=== PATIENT | male | born 1955 | race American Indian/Alaskan Native ===

== ENCOUNTER 2020-08-18 15:42 | Inpatient (IN) | payer MEDICARE, OTHER ==
--- NOTE | 2020-08-18 16:28 | Emergency Department Report ---
ED Syncope HPI - General Chief Complaint: Syncope Stated Complaint: SYNCOPAL EPISODE/HYPOTENSION Time Seen by Provider: 08/18/20 16:14 - History of Present Illness Initial Comments: 65-year-old male, history of nasopharyngeal cancer, sickle cell anemia (SC- type), presents to ED following syncopal episode. Patient states he was at his brother's house giving him a haircut. Patient states he had a hot flash, so he sat down. Patient states he stood back up to continue trimming his brother's mustache and then remembers waking up on the floor. Patient states he has had several of these hot flashes, but has never passed out. Patient does report diaphoresis with it. He denies any associated chest pain, shortness of breath, headache, palpitations, abdominal pain, vomiting or diarrhea. Patient denies any recent fever. Patient states he had a sickle cell crisis 2 weeks ago, but states he is feeling much better at this time. Patient reports his blood pressure runs low at baseline. He states that he usually checks his blood pressure at home every other day and systolic is usually in the 90s. Timing/Prior Episodes: recent history Precipitating Factors: Positive: diaphoresis Context: standing Loss of Consciousness: unsure Current Symptoms: back to normal. denies: chest pain, diaphoresis, nausea - Related Data Allergies/Adverse Reactions: Allergies No Known Allergies Allergy (Unverified 08/18/20 16:04) ED Review of Systems ROS: Stated complaint: SYNCOPAL EPISODE/HYPOTENSION Other details as noted in HPI Comment: All other systems reviewed and negative Constitutional: denies: chills, fever Respiratory: denies: cough, shortness of breath Cardiovascular: denies: chest pain, palpitations Gastrointestinal: denies: abdominal pain, vomiting, diarrhea Neurological: denies: headache ED Past Medical Hx - Past Medical History Hx Sickle Cell Disease: Yes Additional medical history: nasopharyngeal cancer - Social History Smoking Status: Current Every Day Smoker Substance Use Type: None ED Physical Exam - General Limitations: No Limitations General appearance: alert, in no apparent distress - Head Head exam: Present: atraumatic, normocephalic - Eye Eye exam: Present: normal appearance, EOMI - ENT ENT exam: Present: mucous membranes moist - Neck Neck exam: Present: normal inspection - Respiratory Respiratory exam: Present: normal lung sounds bilaterally. Absent: respiratory distress - Cardiovascular Cardiovascular Exam: Present: regular rate, normal rhythm - GI/Abdominal GI/Abdominal exam: Present: soft. Absent: distended, tenderness - Extremities Exam Extremities exam: Present: normal inspection - Neurological Exam Neurological exam: Present: alert, oriented X3, CN II-XII intact. Absent: motor sensory deficit - Psychiatric Psychiatric exam: Present: normal affect, normal mood - Skin Skin exam: Present: warm, dry, intact, normal color ED Course Vital Signs 08/18/20 08/18/20 08/18/20 15:54 15:58 16:12 Temperature 97.9 F Pulse Rate 56 L 88 78 Respiratory 15 12 10 L Rate Blood Pressure 97/57 O2 Sat by Pulse 99 100 Oximetry 08/18/20 08/18/20 08/18/20 16:16 16:30 16:46 Temperature Pulse Rate 77 76 Respiratory 11 L 9 L Rate Blood Pressure 99/69 100/68 96/63 O2 Sat by Pulse 100 100 100 Oximetry 08/18/20 08/18/20 08/18/20 17:00 19:24 20:00 Temperature Pulse Rate 74 82 74 Respiratory 12 16 16 Rate Blood Pressure 107/59 107/59 97/68 O2 Sat by Pulse 99 99 100 Oximetry 08/18/20 08/18/20 08/18/20 21:00 22:00 23:00 Temperature Pulse Rate Respiratory 12 17 17 Rate Blood Pressure 104/73 109/71 107/73 O2 Sat by Pulse 100 100 100 Oximetry ED Medical Decision Making - Lab Data Result diagrams: 08/18/20 16:33 08/18/20 23:20 - EKG Data -: EKG Interpreted by [facility] EKG shows normal: sinus rhythm, axis, intervals, QRS complexes, ST-T waves Rate: normal - EKG Data Interpretation: no acute changes - Radiology Data Radiology results: report reviewed, image reviewed - Differential Diagnosis ACS, arrhythmia, PE, anemia Critical care attestation.: If time is entered above; I have spent that time in minutes in the direct care of this critically ill patient, excluding procedure time. ED Disposition Clinical Impression: Syncope Disposition: OP ADMIT IP TO THIS HOSP Is pt being admited?: Yes Condition: Stable Time of Disposition: 21:16
[2020-08-18 16:50] LABS: Basophils % (Auto) 0.9 % (0.0-1.8); Eosinophils # (Auto) 0.1 K/mm3 (0.0-0.4); Eosinophils % (Auto) 2.3 % (0.0-4.3); Hematocrit 23.4 % (35.5-45.6); Hemoglobin 8.3 gm/dl (11.8-15.2); Lymphocytes # (Auto) 0.8 K/mm3 (1.2-5.4); Lymphocytes % (Auto) 18.9 % (13.4-35.0); Mean Corpuscular HGB Conc 35 % (32-34); Mean Corpuscular Volume 80 fl (84-94); Monocytes # (Auto) 0.2 K/mm3 (0.0-0.8); Platelet Count 137 K/mm3 (140-440); Red Blood Count 2.92 M/mm3 (3.65-5.03)
[2020-08-18 16:55] LABS: Red Cell Distribution Width 20.2 % (13.2-15.2)
--- NOTE | 2020-08-18 16:55 | XRay Report ---
CHEST 1 VIEW INDICATION: syncope. COMPARISON: None FINDINGS: SUPPORT DEVICES: Right-sided Port-A-Cath with tip at the cavoatrial junction. HEART: Within normal limits. LUNGS/PLEURA: No acute air space or interstitial disease. ADDITIONAL FINDINGS: None. IMPRESSION: 1. No acute findings. Signer Name: Justin Mckeon MD Signed: 08/18/2020 4:50 PM Workstation Name: [id number]
[2020-08-18 17:07] LABS: Alanine Aminotransferase 13 units/L (7-56); BUN/Creatinine Ratio 7; Blood Urea Nitrogen 9 mg/dL (9-20); Calcium 8.9 mg/dL (8.4-10.2); Hemolysis Index 3; INR 1.13 (0.87-1.13)
[2020-08-18 17:08] LABS: Partial Thromboplastin Time 41.4 Sec. (24.2-36.6)
[2020-08-18 17:13] LABS: Bilirubin,Direct < 0.2 mg/dL (0-0.2)
--- NOTE | 2020-08-18 17:34 | Cat Scan Report ---
CT head without contrast HISTORY: syncope; hx nasopharyngeal CA. TECHNIQUE: Axial imaging performed from the skull apex through the skull base without the use of con trast. All CT scans at this location are performed using CT dose reduction for ALARA by means of aut omated exposure control. COMPARISON: None FINDINGS: Parenchyma: No acute intracranial hemorrhage or parenchymal abnormality. Ventricles: There is mild diffuse brain atrophy with commensurate ventricular enlargement which is l ikely age appropriate. Soft tissues: Soft tissues including the orbits appear normal. Bones: No acute osseous abnormality. Sinuses: Sinuses and mastoid air cells are clear. IMPRESSION: No acute abnormality. Signer Name: Justin Mckeon MD Signed: 08/18/2020 5:29 PM Workstation Name: [id number]
[2020-08-18] MEDS ORDERED: ONDANSETRON 4 MG/2 ML INJ IV PRN (21:56)
[2020-08-18] MEDS ORDERED: traMADol 50 MG TAB PO PRN (21:56)
[2020-08-18] MEDS ORDERED: ALBUTEROL 2.5 MG/3 ML NEBU IH PRN (21:56)
[2020-08-18] MEDS ORDERED: ACETAMINOPHEN 325 MG TAB PO PRN ×2 (21:56)
--- NOTE | 2020-08-18 22:05 | History and Physical Report ---
History of Present Illness Date of examination: 08/18/20 Date of admission: 08/18/20 21:18 Chief complaint: Syncope History of present illness: 65-year-old male past medical history of nasopharyngeal cancer, sickle cell anemia (SC-type) was brought to the emergency room because of syncopal episode. Patient was at his brother's house giving him a haircut. Patient states he had a hot flash, so he sat down. Patient states he stood back up to continue trimming his brother's mustache and then remembers waking up on the floor. Patient states he has had several of these hot flashes, but has never passed out. Patient does report diaphoresis with it. He denies any associated chest pain, shortness of breath, headache, palpitations, abdominal pain, vomiting or diarrhea. Patient denies any recent fever. Patient states he had a sickle cell crisis 2 weeks ago, but states he is feeling much better at this time. Patient reports his blood pressure runs low at baseline. He states that he usually checks his blood pressure at home every other day and systolic is usually in the 90s. In the emergency room patient is found to have syncopal episode. Initial cardiac enzyme is negative troponin is 0.010 Past History Past Medical History: other (Sickle cell disease. Nasopharyngeal carcinoma) Medications and Allergies Allergies Allergy/AdvReac Type Severity Reaction Status Date / Time No Known Allergies Allergy Unverified 08/18/20 16:04 Active Meds: Active Medications Acetaminophen (Acetaminophen 325 Mg Tab) 650 mg PO Q4H PRN PRN Reason: Pain MILD(1-3)/Fever >100.5/VALLES Acetaminophen (Acetaminophen 325 Mg Tab) 650 mg PO Q6H PRN PRN Reason: Pain, Mild (1-3) Albuterol (Albuterol 2.5 Mg/3 Ml Nebu) 2.5 mg IH Q3HRT PRN PRN Reason: Shortness Of Breath Albuterol/Ipratropium (Ipratropium/Albuterol Sulfate 3 Ml Ampul.Neb) 1 ampul IH Q6HRT ORION Aspirin (Aspirin 81 Mg Tab Chew) 81 mg PO QDAY ORION Atorvastatin Calcium (Atorvastatin 40 Mg Tab) 40 mg PO QHS ORION Famotidine (Famotidine 20 Mg Tab) 20 mg PO BID ORION Sodium Chloride (Nacl 0.9% 1000 Ml) 1,000 mls @ 100 mls/hr IV DIRECT ORION Ondansetron HCl (Ondansetron 4 Mg/2 Ml Inj) 4 mg IV Q8H PRN PRN Reason: Nausea And Vomiting Sodium Chloride (Sodium Chloride 0.9% 10 Ml Flush Syringe) 10 ml IV BID ORION Sodium Chloride (Sodium Chloride 0.9% 10 Ml Flush Syringe) 10 ml IV PRN PRN PRN Reason: LINE FLUSH Sodium Chloride (Sodium Chloride 0.9% 10 Ml Flush Syringe) 10 ml IV PRN PRN PRN Reason: LINE FLUSH Tramadol HCl (Tramadol 50 Mg Tab) 50 mg PO Q6H PRN PRN Reason: Pain, Moderate (4-6) Review of Systems Cardiovascular: syncope, other (Hot flashes) Exam - Constitutional Vitals: Temp Pulse Resp BP Pulse Ox 97.9 F 74 12 104/73 100 08/18/20 15:58 08/18/20 20:00 08/18/20 21:00 08/18/20 21:00 08/18/20 21:00 General appearance: Present: no acute distress, well-nourished - EENT Eyes: Present: PERRL ENT: hearing intact, clear oral mucosa - Neck Neck: Present: supple, normal ROM - Respiratory Respiratory effort: normal Respiratory: bilateral: CTA - Cardiovascular Heart Sounds: Present: S1 & S2. Absent: rub, click - Extremities Extremities: pulses symmetrical, No edema Peripheral Pulses: within normal limits - Abdominal General gastrointestinal: Present: soft, non-tender, non-distended, normal bowel sounds Male genitourinary: Present: normal - Integumentary Integumentary: Present: clear, warm, dry - Musculoskeletal Musculoskeletal: gait normal, strength equal bilaterally - Psychiatric Psychiatric: appropriate mood/affect, intact judgment & insight - Neurologic Neurologic: CNII-XII intact, moves all extremities HEART Score - HEART Score Troponin: Troponin T < 0.010 ng/mL (0.00-0.029) 08/18/20 19:28 Results - Labs CBC & Chem 7: 08/18/20 16:33 08/18/20 16:33 Labs: Laboratory Last Values WBC 4.4 K/mm3 (4.5-11.0) L 08/18/20 16:33 RBC 2.92 M/mm3 (3.65-5.03) L 08/18/20 16:33 Hgb 8.3 gm/dl (11.8-15.2) L 08/18/20 16:33 Hct 23.4 % (35.5-45.6) L 08/18/20 16:33 MCV 80 fl (84-94) L 08/18/20 16:33 MCH 28 pg (28-32) 08/18/20 16:33 MCHC 35 % (32-34) H 08/18/20 16:33 RDW 20.2 % (13.2-15.2) H 08/18/20 16:33 Plt Count 137 K/mm3 (140-440) L 08/18/20 16:33 Lymph % (Auto) 18.9 % (13.4-35.0) 08/18/20 16:33 [place] % (Auto) 5.0 % (0.0-7.3) 08/18/20 16:33 Eos % (Auto) 2.3 % (0.0-4.3) 08/18/20 16:33 Baso % (Auto) 0.9 % (0.0-1.8) 08/18/20 16:33 Lymph # (Auto) 0.8 K/mm3 (1.2-5.4) L 08/18/20 16:33 [place] # (Auto) 0.2 K/mm3 (0.0-0.8) 08/18/20 16:33 Eos # (Auto) 0.1 K/mm3 (0.0-0.4) 08/18/20 16:33 Baso # (Auto) 0.0 K/mm3 (0.0-0.1) 08/18/20 16:33 Seg Neutrophils % 72.9 % (40.0-70.0) H 08/18/20 16:33 Seg Neutrophils # 3.2 K/mm3 (1.8-7.7) 08/18/20 16:33 PT 14.4 Sec. (12.2-14.9) 08/18/20 16:33 INR 1.13 (0.87-1.13) 08/18/20 16:33 APTT 41.4 Sec. (24.2-36.6) H 08/18/20 16:33 D-Dimer < 135.00 ng/mlDDU (0-234) 08/18/20 16:33 Sodium 137 mmol/L (137-145) 08/18/20 16:33 Potassium 4.0 mmol/L (3.6-5.0) 08/18/20 16:33 Chloride 104.8 mmol/L (98-107) 08/18/20 16:33 Carbon Dioxide 22 mmol/L (22-30) 08/18/20 16:33 Anion Gap 14 mmol/L 08/18/20 16:33 BUN 9 mg/dL (9-20) 08/18/20 16:33 Creatinine 1.3 mg/dL (0.8-1.3) 08/18/20 16:33 Estimated GFR 56 ml/min 08/18/20 16:33 BUN/Creatinine Ratio 7 % 08/18/20 16:33 Glucose 85 mg/dL (75-100) 08/18/20 16:33 Calcium 8.9 mg/dL (8.4-10.2) 08/18/20 16:33 Total Bilirubin 0.70 mg/dL (0.1-1.2) 08/18/20 16:33 Direct Bilirubin < 0.2 mg/dL (0-0.2) 08/18/20 16:33 Indirect Bilirubin 0.5 mg/dL 08/18/20 16:33 AST 9 units/L (5-40) 08/18/20 16:33 ALT 13 units/L (7-56) 08/18/20 16:33 Alkaline Phosphatase 75 units/L (35-129) 08/18/20 16:33 Troponin T < 0.010 ng/mL (0.00-0.029) 08/18/20 19:28 Total Protein 6.6 g/dL (6.3-8.2) 08/18/20 16:33 Albumin 4.0 g/dL (3.9-5) 08/18/20 16:33 Albumin/Globulin Ratio 1.5 % 08/18/20 16:33 - Imaging and Cardiology Chest x-ray: report reviewed CT Scan - head: report reviewed Assessment and Plan VTE prophylaxis?: Chemical Plan of care discussed with patient/family: Yes - Patient Problems (1) Syncope Current Visit: Yes Status: Acute Plan to address problem: Admit the patient to the medical telemetry. Put the patient normal saline at the rate of 100 cc/h. Aspirin 81 mg p.o. daily. Lipitor 40 mg p.o. daily. Due to the serial cardiac enzyme. We also do echocardiogram. Consult cardiology if needed (2) Sickle cell disease Current Visit: Yes Status: Acute Plan to address problem: Stable. We will continue the home medication. CBC in the morning (3) Nasopharyngeal carcinoma Current Visit: Yes Status: Acute Plan to address problem: Patient will follow up with oncology as outpatient. We will continue the home medication (4) DVT prophylaxis Current Visit: Yes Status: Acute Plan to address problem: Heparin 5000 units subcu every 8 hours for DVT prophylaxis. Pepcid 20 mg p.o. twice daily for GI prophylaxis. Patient is a full code
[2020-08-19] MEDS: SODIUM CHLORIDE 0.9% 1000 ML 1,000 ML IV SCH ×2 (00:17→10:01)
[2020-08-19] MEDS: FAMOTIDINE 20 MG TAB PO SCH ×3 (00:17→22:04)
[2020-08-19 00:43] LABS: BUN/Creatinine Ratio 7; Blood Urea Nitrogen 9 mg/dL (9-20); Calcium 9.8 mg/dL (8.4-10.2); Hemolysis Index 27
[2020-08-19 00:57] LABS: Basophils % (Auto) 0.5 % (0.0-1.8); Eosinophils # (Auto) 0.1 K/mm3 (0.0-0.4); Eosinophils % (Auto) 2.6 % (0.0-4.3); Hematocrit 24.5 % (35.5-45.6); Hemoglobin 8.8 gm/dl (11.8-15.2); Lymphocytes % (Auto) 25.1 % (13.4-35.0); Mean Corpuscular HGB Conc 36 % (32-34); Mean Corpuscular Volume 80 fl (84-94); Monocytes # (Auto) 0.2 K/mm3 (0.0-0.8); Monocytes % (Auto) 5.1 % (0.0-7.3); Platelet Count 143 K/mm3 (140-440); Red Blood Count 3.06 M/mm3 (3.65-5.03)
[2020-08-19 01:03] LABS: Red Cell Distribution Width 20.2 % (13.2-15.2)
[2020-08-19] MEDS ORDERED: IPRATROPIUM/ALBUTEROL SULFATE 3 ML AMPUL.NEB IH SCH (02:00)
[2020-08-19 05:38] LABS: Basophils % (Auto) 0.6 % (0.0-1.8); Eosinophils # (Auto) 0.1 K/mm3 (0.0-0.4); Eosinophils % (Auto) 3.7 % (0.0-4.3); Hematocrit 20.8 % (35.5-45.6); Hemoglobin 7.6 gm/dl (11.8-15.2); Lymphocytes # (Auto) 0.8 K/mm3 (1.2-5.4); Mean Corpuscular HGB Conc 37 % (32-34); Mean Corpuscular Volume 79 fl (84-94); Monocytes # (Auto) 0.2 K/mm3 (0.0-0.8); Monocytes % (Auto) 5.5 % (0.0-7.3); Platelet Count 117 K/mm3 (140-440); Red Blood Count 2.63 M/mm3 (3.65-5.03)
[2020-08-19 05:39] LABS: Red Cell Distribution Width 20.1 % (13.2-15.2)
[2020-08-19 05:51] LABS: BUN/Creatinine Ratio 7; Blood Urea Nitrogen 10 mg/dL (9-20); Calcium 8.6 mg/dL (8.4-10.2); Hemolysis Index 3
--- NOTE | 2020-08-19 08:42 | Progress Note ---
Assessment and Plan Assessment and plan: Syncope/disequilibrium/autonomic dysfunction. Etiology likely secondary to orthostatic hypotension. On admission, patient noted to be hypotensive. We will check orthostatic vital signs. Continue IV fluid hydration. Continue telemetry monitoring. EKG with no acute changes. Consider cardiology consult if needed. Follow-up echocardiogram and carotid ultrasound. Sickle cell disease. No acute vaso-occlusive crisis at this time. Continue home medication Nasopharyngeal carcinoma. Follow-up with oncology as an outpatient. DVT prophylaxis. History Interval history: No new issues Hospitalist Physical - Constitutional Vitals: Temp Pulse Resp BP Pulse Ox 98.3 F 72 18 96/63 97 08/19/20 03:15 08/19/20 03:15 08/19/20 03:15 08/19/20 03:15 08/19/20 03:15 General appearance: Present: no acute distress, well-nourished - EENT Eyes: Present: PERRL, EOM intact ENT: hearing intact, clear oral mucosa, dentition normal - Neck Neck: Present: supple, normal ROM - Respiratory Respiratory effort: normal Respiratory: bilateral: CTA - Cardiovascular Rhythm: regular Heart Sounds: Present: S1 & S2. Absent: gallop, rub - Extremities Extremities: no ischemia, No edema, Full ROM - Abdominal General gastrointestinal: soft, non-tender, non-distended, normal bowel sounds - Integumentary Integumentary: Present: clear, warm, dry - Neurologic Neurologic: CNII-XII intact, moves all extremities HEART Score - HEART Score Troponin: Troponin T < 0.010 ng/mL (0.00-0.029) 08/19/20 05:02 Results - Labs CBC & Chem 7: 08/19/20 05:02 08/19/20 05:02 Labs: Laboratory Last Values WBC 3.0 K/mm3 (4.5-11.0) L 08/19/20 05:02 RBC 2.63 M/mm3 (3.65-5.03) L 08/19/20 05:02 Hgb 7.6 gm/dl (11.8-15.2) L 08/19/20 05:02 Hct 20.8 % (35.5-45.6) L 08/19/20 05:02 MCV 79 fl (84-94) L 08/19/20 05:02 MCH 29 pg (28-32) 08/19/20 05:02 MCHC 37 % (32-34) H 08/19/20 05:02 RDW 20.1 % (13.2-15.2) H 08/19/20 05:02 Plt Count 117 K/mm3 (140-440) L 08/19/20 05:02 Lymph % (Auto) 28.0 % (13.4-35.0) 08/19/20 05:02 [place] % (Auto) 5.5 % (0.0-7.3) 08/19/20 05:02 Eos % (Auto) 3.7 % (0.0-4.3) 08/19/20 05:02 Baso % (Auto) 0.6 % (0.0-1.8) 08/19/20 05:02 Lymph # (Auto) 0.8 K/mm3 (1.2-5.4) L 08/19/20 05:02 [place] # (Auto) 0.2 K/mm3 (0.0-0.8) 08/19/20 05:02 Eos # (Auto) 0.1 K/mm3 (0.0-0.4) 08/19/20 05:02 Baso # (Auto) 0.0 K/mm3 (0.0-0.1) 08/19/20 05:02 Seg Neutrophils % 62.2 % (40.0-70.0) 08/19/20 05:02 Seg Neutrophils # 1.8 K/mm3 (1.8-7.7) 08/19/20 05:02 PT 14.4 Sec. (12.2-14.9) 08/18/20 16:33 INR 1.13 (0.87-1.13) 08/18/20 16:33 APTT 41.4 Sec. (24.2-36.6) H 08/18/20 16:33 D-Dimer < 135.00 ng/mlDDU (0-234) 08/18/20 16:33 Sodium 139 mmol/L (137-145) 08/19/20 05:02 Potassium 4.3 mmol/L (3.6-5.0) 08/19/20 05:02 Chloride 107.1 mmol/L (98-107) H 08/19/20 05:02 Carbon Dioxide 23 mmol/L (22-30) 08/19/20 05:02 Anion Gap 13 mmol/L 08/19/20 05:02 BUN 10 mg/dL (9-20) 08/19/20 05:02 Creatinine 1.4 mg/dL (0.8-1.3) H 08/19/20 05:02 Estimated GFR > 60 ml/min 08/19/20 05:02 BUN/Creatinine Ratio 7 % 08/19/20 05:02 Glucose 89 mg/dL (75-100) 08/19/20 05:02 Calcium 8.6 mg/dL (8.4-10.2) 08/19/20 05:02 Total Bilirubin 0.70 mg/dL (0.1-1.2) 08/18/20 16:33 Direct Bilirubin < 0.2 mg/dL (0-0.2) 08/18/20 16:33 Indirect Bilirubin 0.5 mg/dL 08/18/20 16:33 AST 9 units/L (5-40) 08/18/20 16:33 ALT 13 units/L (7-56) 08/18/20 16:33 Alkaline Phosphatase 75 units/L (35-129) 08/18/20 16:33 Troponin T < 0.010 ng/mL (0.00-0.029) 08/19/20 05:02 Total Protein 6.6 g/dL (6.3-8.2) 08/18/20 16:33 Albumin 4.0 g/dL (3.9-5) 08/18/20 16:33 Albumin/Globulin Ratio 1.5 % 08/18/20 16:33 [place]/IV: Voiding Method Toilet Active Medications - Current Medications Current Medications: Generic Name Dose Route Start Last Admin Trade Name Freq PRN Reason Stop Dose Admin Acetaminophen 650 mg 08/18/20 21:56 Acetaminophen 325 Mg Tab PO Q4H PRN Pain MILD(1-3)/Fever >100.5/VALLES Albuterol 2.5 mg 08/18/20 21:56 Albuterol 2.5 Mg/3 Ml Nebu IH Q3HRT PRN Shortness Of Breath Aspirin 81 mg 08/19/20 10:00 Aspirin 81 Mg Tab Chew PO QDAY ORION Atorvastatin Calcium 40 mg 08/18/20 22:00 08/19/20 00:17 Atorvastatin 40 Mg Tab PO 40 mg QHS ORION Administration Famotidine 20 mg 08/18/20 22:00 08/19/20 00:17 Famotidine 20 Mg Tab PO 20 mg BID ORION Administration Sodium Chloride 1,000 mls @ 100 mls/hr 08/18/20 22:00 08/19/20 00:17 Nacl 0.9% 1000 Ml IV 100 mls/hr DIRECT ORION Administration Ondansetron HCl 4 mg 08/18/20 21:56 Ondansetron 4 Mg/2 Ml Inj IV Q8H PRN Nausea And Vomiting Sodium Chloride 10 ml 08/18/20 22:00 08/19/20 00:17 Sodium Chloride 0.9% 10 Ml Flush Syringe IV 10 ml BID ORION Administration Sodium Chloride 10 ml 08/18/20 21:56 Sodium Chloride 0.9% 10 Ml Flush Syringe IV PRN PRN LINE FLUSH Tramadol HCl 50 mg 08/18/20 21:56 Tramadol 50 Mg Tab PO Q6H PRN Pain, Moderate (4-6)
[2020-08-19] MEDS: ASPIRIN 81 MG TAB CHEW PO SCH (09:59)
[2020-08-20] MEDS: SODIUM CHLORIDE 0.9% 1000 ML 1,000 ML IV SCH (05:33)
[2020-08-20 05:53] LABS: Basophils % (Auto) 0.5 % (0.0-1.8); Eosinophils # (Auto) 0.1 K/mm3 (0.0-0.4); Eosinophils % (Auto) 3.1 % (0.0-4.3); Hematocrit 21.8 % (35.5-45.6); Lymphocytes % (Auto) 37.1 % (13.4-35.0); Mean Corpuscular HGB Conc 37 % (32-34); Mean Corpuscular Volume 79 fl (84-94); Monocytes # (Auto) 0.2 K/mm3 (0.0-0.8); Monocytes % (Auto) 5.9 % (0.0-7.3); Platelet Count 124 K/mm3 (140-440); Red Blood Count 2.77 M/mm3 (3.65-5.03)
[2020-08-20 05:54] LABS: Red Cell Distribution Width 20.3 % (13.2-15.2)
[2020-08-20 06:07] LABS: BUN/Creatinine Ratio 9; Blood Urea Nitrogen 12 mg/dL (9-20); Calcium 8.9 mg/dL (8.4-10.2); Hemolysis Index 4
[2020-08-20 09:03] VITALS: BP 107/74
[2020-08-20] MEDS: ASPIRIN 81 MG TAB CHEW PO SCH (09:46)
[2020-08-20] MEDS: FAMOTIDINE 20 MG TAB PO SCH (09:47)
--- NOTE | 2020-08-20 10:13 | Discharge Summary ---
Providers - Providers Date of Admission: 08/18/20 21:18 Date of discharge: 08/20/20 Attending physician: CHUNG HERNANDEZ MD 08/18/20 Consult to Cardiac Rehabilitation [CONS] Routine Reason For Exam: Phase I Hospitalization Reason for admission: Syncope/autonomic disequilibrium Condition: Stable Hospital course: History of present illness: 65-year-old male past medical history of nasopharyngeal cancer, sickle cell anemia (SC-type) was brought to the emergency room because of syncopal episode. Patient was at his brother's house giving him a haircut. Patient states he had a hot flash, so he sat down. Patient states he stood back up to continue trimming his brother's mustache and then remembers waking up on the floor. Patient states he has had several of these hot flashes, but has never passed out. Patient does report diaphoresis with it. He denies any associated chest pain, shortness of breath, headache, palpitations, abdominal pain, vomiting or diarrhea. Patient denies any recent fever. Patient states he had a sickle cell crisis 2 weeks ago, but states he is feeling much better at this time. Patient reports his blood pressure runs low at baseline. He states that he usually checks his blood pressure at home every other day and systolic is usually in the 90s. In the emergency room patient is found to have syncopal episode. Initial cardiac enzyme is negative troponin is 0.010. Hospital course Patient was admitted to the floor and echo was done and was unremarkable, CT head was normal. Patient was given IV fluids and blood pressure was okay. Patient does not have any dizziness and wants to go home. Patient was hemodynamically stable at the time of discharge. Management plan was discussed in detail with the patient and was in agreement with the plan of care. Disposition: DC-01 TO HOME OR SELFCARE Final Discharge Diagnosis (Prints w/discharge instructions): Syncope/autonomic disequilibrium. Sickle cell disease, not in crisis Time spent for discharge: 25 - Discharge Diagnoses (1) Sickle cell disease Status: Acute (2) Syncope Status: Acute Core Measure Documentation - Palliative Care Palliative Care/ Comfort Measures: Not Applicable - Core Measures Any of the following diagnoses?: none Exam - Physical Exam Narrative exam: Not in cardiopulmonary distress. The patient appeared well nourished and normally developed. Vital signs as documented. Head exam is unremarkable. No scleral icterus . Neck is without jugular venous distension, thyromegaly, or carotid bruits. Lungs are clear to auscultation. Cardiac exam reveals regular rate and Rhythm. Abdominal exam reveals normal bowel sounds, nontender, no organomegaly. Extremities are nonedematous and both femoral and pedal pulses are normal. TRUST MANAGER: Alert and oriented 3. No focal weakness. - Constitutional Vitals: Temp Pulse Resp BP Pulse Ox 98.7 F 70 18 107/74 98 08/20/20 08:46 08/20/20 08:49 08/20/20 08:46 08/20/20 08:46 08/20/20 09:08 Plan Activity: advance as tolerated Weight Bearing Status: Full Weight Bearing Diet: regular Follow up with: [facility] [Other] - 3-5 Days
--- NOTE | 2020-08-21 10:09 | Electrocardiograph Report ---
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
--- NOTE | 2020-08-21 10:11 | Electrocardiograph Report ---
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
--- NOTE | 2020-08-21 10:12 | Electrocardiograph Report ---
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
== END 2020-08-20 12:00 | disposition home or self-care (01) | DRG 74 ==
LOC: EDUNIT# → ED 15:42 → 4A 21:18 → OBSVTOIN 08-20 10:42
PROVIDERS: ADMIT Hospitalist; ATTEND Internal Medicine
DX: G90.8 Other disorders of autonomic nervous system (principal); I95.9 Hypotension, unspecified; D57.1 Sickle-cell disease without crisis; E87.8 Other disorders of electrolyte and fluid balance, not elsewhere classified; F17.200 Nicotine dependence, unspecified, uncomplicated; Z85.819 Personal history of malignant neoplasm of unspecified site of lip, oral cavity, and pharynx
CPT/HCPCS: 36415; 70450; 71045; 80048; 80076; 84484; 85025; 85379; 85610; 85730; 93005; 93306; G0378; A9270-GY; J7030